=== PATIENT | female | born 1945 | race Caucasian/White ===

== ENCOUNTER 2019-09-08 21:33 | Observation (INO) ==
[2019-09-08] MEDS ORDERED: ASPIRIN CHEW 81 MG TABLET PO STA (22:21)
[2019-09-08] MEDS ORDERED: ALUM/MAG/SIMETH/LIDO VISC 1:1 30 ML BOTTLE PO STA (22:22)
[2019-09-08] MEDS ORDERED: ASPIRIN 325 MG TABLET ONE (22:26)
[2019-09-08 22:31] LABS: Basophils # 0.1 10*3/uL (0.0-0.2); Basophils % 0.6 % (0.0-0.8); Eosinophils # 0.6 10*3/uL (0.0-0.87); Eosinophils % 7.5 % (0.00-10.9); Immature Granulocytes % 0.4 %; Immature Granulocytes Absolute 0.03 #; Lymphocytes # 1.9 10*3/uL (1.4-4.0); Lymphocytes % 23.1 % (21.3-54.2); Mean Corpuscular HGB Conc 31.8 GM/DL (32-36); Mean Corpuscular Volume 87.8 FL (87-102); Mean Platelet Volume 10.3 FL (9.6-12.0); Monocytes % 9.4 % (1.7-12.7); Platelet Count 367 T/CUMM (130-400); Red Blood Count 5.01 MC/CUMM (3.8-5.5); Red Cell Distribution Width 13.8 % (9.3-17.3); White Blood Count 8.2 T/CUMM (4-12)
[2019-09-08 22:41] LABS: Albumin 4.1 G/DL (3.4-5.0); Bilirubin,Total 0.5 MG/DL (0.2-1.0); Calcium 9.2 MG/DL (8.5-10.1); Osmolality,Calculated 282.4 MOS/KG (273-304); Total Protein 8.9 G/DL (6.4-8.3)
[2019-09-08] MEDS ORDERED: ONDANSETRON 4 MG/2 ML VIAL IV PRN (23:56)
[2019-09-09 01:37] LABS: Apearance,Urine CLEAR (Clear); Bilirubin,Urine Negative (Negative); Blood, Urine Negative (Negative); Glucose,Urine (UA) Negative (Negative); Ketones,Urine Negative (Negative); Mucus,Urine Occasional /LPF (Occasional); Nitrite,Urine Negative (Negative); Protein,Urine Negative; RBC,Urine 1 /HPF (0-4); Urine Color Straw (Yellow); Urine Specific Gravity 1.004 (1.001-1.035); Urine Urobilinogen < 2.0 EU/DL (0.2-1.0); WBC,Urine <1 /HPF (0-6)
[2019-09-09] MEDS ORDERED: MORPHINE 4 MG/1 ML VIAL IV PRN (01:49)
[2019-09-09] MEDS: APIXABAN 5 MG TABLET PO SCH ×2 (02:20→09:37)
[2019-09-09] MEDS: DOCUSATE SODIUM 100 MG CAPSULE PO SCH ×2 (02:20→09:36)
[2019-09-09] MEDS ORDERED: LEVOTHYROXINE 125 MCG TABLET PO SCH (06:00)
[2019-09-09 07:46] LABS: Risk Ratio 3.82; VLDL CHOLESTEROL 24.2 MG/DL
[2019-09-09] MEDS ORDERED: MELOXICAM 7.5 MG TABLET PO SCH (08:00)
[2019-09-09] MEDS ORDERED: CHOLECALCIFEROL 1,000 UNIT TABLET PO SCH (09:00)
[2019-09-09] MEDS ORDERED: MAGNESIUM GLUCONATE 500 MG TABLET PO SCH (09:00)
[2019-09-09] MEDS ORDERED: ASPIRIN EC 325 MG TABLET PO SCH (09:00)
[2019-09-09] MEDS ORDERED: SELENIUM 200 MCG TABLET PO SCH (09:00)
[2019-09-09] MEDS ORDERED: SPIRONOLACTONE 50 MG TABLET PO SCH (09:00)
[2019-09-09] MEDS ORDERED: CLOPIDOGREL 75 MG TABLET PO SCH (09:00)
[2019-09-09] MEDS ORDERED: LOSARTAN 50 MG TABLET PO SCH (09:00)
[2019-09-09] MEDS ORDERED: PANTOPRAZOLE 40 MG TABLET PO SCH ×2 (09:00→21:00)
[2019-09-09] MEDS ORDERED: DEXTROSE 50% 25 GM/50 ML VIAL IV PRN (10:18)
[2019-09-09] MEDS ORDERED: GLUCAGON 1 MG VIAL IM PRN (10:18)
[2019-09-09 11:42] VITALS: BP 139/63
[2019-09-09] MEDS ORDERED: ATORVASTATIN 40 MG TABLET PO SCH (21:00)
== END 2019-09-09 13:00 | disposition home or self-care (01) ==
LOC: N.EDINP 21:33 → N.ED 21:33 → N.TELEN 09-09 00:46
PROVIDERS: ADMIT Internal Medicine; ATTEND Internal Medicine

== ENCOUNTER 2021-08-12 05:27 | Inpatient (IN) ==
[2021-08-12] MEDS ORDERED: VANCOMYCIN INJ 1,000 MG in SODIUM CHLORIDE 0.9% 250 ML IV ONE (06:00)
[2021-08-12] MEDS ORDERED: BUPIVACAINE SPINAL 0.75% 2 ML AMP SPINAL ONE (06:07)
[2021-08-12] MEDS ORDERED: fentaNYL 100 MCG/2 ML VIAL ONE ×2 (06:08→07:35)
[2021-08-12] MEDS ORDERED: MIDAZOLAM 2 MG/2 ML VIAL ONE (06:08)
[2021-08-12] MEDS ORDERED: KETAMINE 500 MG/10 ML VIAL ONE (06:08)
[2021-08-12] MEDS ORDERED: DEXAMETHASONE 4 MG/1 ML VIAL ONE ×2 (06:18→10:01)
[2021-08-12] MEDS ORDERED: ROPIVACAINE 0.5% 30 ML VIAL ONE ×2 (06:19→10:01)
[2021-08-12] MEDS ORDERED: LACTATED RINGERS 1,000 ML IV SCH (07:00)
[2021-08-12] MEDS ORDERED: ePHEDrine 50 MG/ML VIAL ONE (07:21)
[2021-08-12] MEDS ORDERED: TRANEXAMIC ACID 1,000 MG/10 ML VIAL ONE (07:47)
[2021-08-12] MEDS ORDERED: ACETAMINOPHEN INJ 1,000 MG/100 ML VIAL IV ONE (07:47)
[2021-08-12] MEDS ORDERED: SUCCINYLCHOLINE 200 MG/10 ML VIAL ONE (07:47)
[2021-08-12] MEDS ORDERED: SEVOFLURANE 1 UNIT/15 MINUTE INH ONE (07:47)
[2021-08-12] MEDS ORDERED: GLYCOPYRROLATE 0.4 MG/2 ML VIAL ONE (07:47)
[2021-08-12] MEDS ORDERED: propofoL 200 MG/20 ML VIAL IV ONE (07:47)
[2021-08-12] MEDS ORDERED: ONDANSETRON 4 MG/2 ML VIAL ONE (07:47)
[2021-08-12] MEDS ORDERED: LIDOCAINE 2% 5 ML VIAL ONE (07:47)
[2021-08-12] MEDS ORDERED: PHENYLEPHRINE 1 MG/10 ML SYRINGE IV ONE (07:48)
[2021-08-12] MEDS ORDERED: PHENYLEPHRINE 10 MG/1 ML VIAL IV ONE (07:51)
[2021-08-12] MEDS ORDERED: LACTATED RINGERS 1,000 ML IV ONE (08:05)
[2021-08-12] MEDS ORDERED: SODIUM CHLORIDE 0.9% 250 ML IV ONE (08:05)
[2021-08-12] MEDS ORDERED: BACITRACIN OINT 0.9 GM PACK TOP ONE (08:13)
[2021-08-12] MEDS ORDERED: MAGNESIUM HYDROXIDE SUSP 30 ML UDCUP PO PRN (08:25)
[2021-08-12] MEDS ORDERED: MORPHINE 2 MG/1 ML SYRINGE IV PRN (08:26)
[2021-08-12] MEDS ORDERED: ONDANSETRON 4 MG/2 ML VIAL IV PRN ×2 (08:26→08:57)
[2021-08-12] MEDS ORDERED: diphenhydrAMINE CAP 25 MG CAPSULE PO PRN (08:26)
[2021-08-12] MEDS ORDERED: flumazeniL 0.5 MG/5 ML VIAL IV ONE (08:38)
[2021-08-12] MEDS ORDERED: NALOXONE 0.4 MG/ML VIAL ONE (08:38)
[2021-08-12] MEDS ORDERED: MEPERIDINE 25 MG/1 ML VIAL IV PRN (08:57)
[2021-08-12] MEDS: KETOROLAC 15 MG/1 ML VIAL IV SCH ×4 (09:00→21:36)
[2021-08-12] MEDS: HYDROmorphone 2 MG/1 ML VIAL IV PRN ×4 (09:00→09:31)
[2021-08-12] MEDS ORDERED: KETOROLAC 30 MG/1 ML VIAL ONE (09:03)
[2021-08-12] MEDS ORDERED: DEXTROSE 50% 25 GM/50 ML SYRINGE IV PRN (09:32)
[2021-08-12] MEDS ORDERED: GLUCAGON 1 MG VIAL IM PRN (09:32)
[2021-08-12] MEDS ORDERED: LIDOCAINE 100 MG/5 ML SYRINGE ONE (10:01)
[2021-08-12] MEDS ORDERED: DEXTROSE 50% 25 GM/50 ML VIAL IV PRN (10:45)
[2021-08-12] MEDS: INSULIN LISPRO 100 UNIT/ML SUBCUT SCH ×3 (13:37→21:26)
[2021-08-12] MEDS: metFORMIN 500 MG TABLET PO SCH (16:09)
[2021-08-12] MEDS: PANTOPRAZOLE 40 MG TABLET PO SCH (16:09)
[2021-08-12] MEDS: POTASSIUM CHLORIDE INJ 20 MEQ in LACTATED RINGERS 1,000 ML IV SCH ×2 (18:10→21:25)
[2021-08-12] MEDS: ATORVASTATIN 40 MG TABLET PO SCH ×2 (21:10→21:13)
[2021-08-12] MEDS: APIXABAN 2.5 MG TABLET PO SCH (21:13)
[2021-08-12] MEDS: GABAPENTIN 300 MG CAPSULE PO SCH (21:13)
[2021-08-12] MEDS: DOCUSATE SODIUM 100 MG CAPSULE PO SCH (21:13)
[2021-08-13] MEDS: KETOROLAC 15 MG/1 ML VIAL IV SCH (04:55)
[2021-08-13] MEDS: LEVOTHYROXINE 125 MCG TABLET PO SCH (05:44)
[2021-08-13] MEDS: POTASSIUM CHLORIDE INJ 20 MEQ in LACTATED RINGERS 1,000 ML IV SCH (05:44)
[2021-08-13 06:13] LABS: Basophils % 0.1 % (0.0-0.8); Eosinophils % 0.1 % (0.00-10.9); Hematocrit 32.4 VOL% (35.7-47.0); Hemoglobin 10.2 GM/DL (12.0-16.0); Immature Granulocytes % 0.5 %; Immature Granulocytes Absolute 0.06 #; Lymphocytes % 7.9 % (21.3-54.2); Mean Corpuscular HGB Conc 31.5 GM/DL (32-36); Mean Corpuscular Volume 85.9 FL (87-102); Mean Platelet Volume 10.8 FL (9.6-12.0); Monocytes % 6.5 % (1.7-12.7); Neutrophils % 84.9 % (38.7-73.9); Platelet Count 302 T/CUMM (130-400); Red Blood Count 3.77 MC/CUMM (3.8-5.5); Red Cell Distribution Width 15.5 % (9.3-17.3); White Blood Count 13.1 T/CUMM (4-12)
[2021-08-13 06:24] LABS: Calcium 8.7 MG/DL (8.5-10.1); Osmolality,Calculated 277.8 MOS/KG (273-304); Potassium 4.9 MMOL/L (3.5-5.1)
[2021-08-13] MEDS: INSULIN LISPRO 100 UNIT/ML SUBCUT SCH ×4 (07:57→21:10)
[2021-08-13] MEDS ORDERED: SELENIUM 200 MCG TABLET PO SCH (09:00)
[2021-08-13] MEDS: CHOLECALCIFEROL 1,000 UNIT TABLET PO SCH (09:13)
[2021-08-13] MEDS: MAGNESIUM OXIDE 400 MG TABLET PO SCH (09:14)
[2021-08-13] MEDS: SPIRONOLACTONE 50 MG TABLET PO SCH (09:14)
[2021-08-13] MEDS: DOCUSATE SODIUM 100 MG CAPSULE PO SCH ×2 (09:14→21:08)
[2021-08-13] MEDS: POTASSIUM CHLORIDE 10 MEQ TABLET PO SCH (09:14)
[2021-08-13] MEDS: ASPIRIN EC 81 MG TABLET PO SCH (09:14)
[2021-08-13] MEDS: APIXABAN 2.5 MG TABLET PO SCH ×2 (09:14→21:08)
[2021-08-13] MEDS: FUROSEMIDE 20 MG TABLET PO SCH (09:14)
[2021-08-13] MEDS: LOSARTAN 50 MG TABLET PO SCH (09:15)
[2021-08-13] MEDS: ESCITALOPRAM 10 MG TABLET PO SCH (09:15)
[2021-08-13] MEDS: GABAPENTIN 300 MG CAPSULE PO SCH ×2 (09:15→21:08)
[2021-08-13] MEDS: PANTOPRAZOLE 40 MG TABLET PO SCH ×2 (09:15→16:57)
[2021-08-13] MEDS: metFORMIN 500 MG TABLET PO SCH ×2 (09:15→16:57)
[2021-08-13] MEDS: MORPHINE 2 MG/1 ML SYRINGE IV PRN (13:34)
[2021-08-13] MEDS: ATORVASTATIN 40 MG TABLET PO SCH (21:08)
[2021-08-14] MEDS: MORPHINE 2 MG/1 ML SYRINGE IV PRN (04:41)
[2021-08-14] MEDS: LEVOTHYROXINE 125 MCG TABLET PO SCH (05:32)
[2021-08-14 05:49] LABS: Basophils # 0.1 10*3/uL (0.0-0.2); Basophils % 0.6 % (0.0-0.8); Eosinophils # 0.8 10*3/uL (0.0-0.87); Eosinophils % 6.9 % (0.00-10.9); Hematocrit 39.7 VOL% (35.7-47.0); Hemoglobin 12.2 GM/DL (12.0-16.0); Immature Granulocytes % 0.5 %; Immature Granulocytes Absolute 0.05 #; Lymphocytes # 1.2 10*3/uL (1.4-4.0); Lymphocytes % 10.7 % (21.3-54.2); Mean Corpuscular HGB Conc 30.7 GM/DL (32-36); Mean Corpuscular Volume 86.9 FL (87-102); Mean Platelet Volume 10.7 FL (9.6-12.0); Monocytes % 7.8 % (1.7-12.7); Neutrophils % 73.5 % (38.7-73.9); Platelet Count 299 T/CUMM (130-400); Red Blood Count 4.57 MC/CUMM (3.8-5.5); Red Cell Distribution Width 16.2 % (9.3-17.3); White Blood Count 10.8 T/CUMM (4-12)
[2021-08-14] MEDS: INSULIN LISPRO 100 UNIT/ML SUBCUT SCH ×2 (07:00→11:16)
[2021-08-14] MEDS ORDERED: POLYETHYLENE GLYCOL POWDER 17 GM PACK PO PRN (08:13)
[2021-08-14] MEDS: CHOLECALCIFEROL 1,000 UNIT TABLET PO SCH (08:14)
[2021-08-14] MEDS: APIXABAN 2.5 MG TABLET PO SCH (08:14)
[2021-08-14] MEDS: PANTOPRAZOLE 40 MG TABLET PO SCH (08:14)
[2021-08-14] MEDS: MAGNESIUM OXIDE 400 MG TABLET PO SCH (08:14)
[2021-08-14] MEDS: GABAPENTIN 300 MG CAPSULE PO SCH (08:14)
[2021-08-14] MEDS: metFORMIN 500 MG TABLET PO SCH (08:14)
[2021-08-14] MEDS: FUROSEMIDE 20 MG TABLET PO SCH (08:14)
[2021-08-14] MEDS: ESCITALOPRAM 10 MG TABLET PO SCH (08:14)
[2021-08-14] MEDS: ASPIRIN EC 81 MG TABLET PO SCH (08:14)
[2021-08-14] MEDS: DOCUSATE SODIUM 100 MG CAPSULE PO SCH (08:14)
[2021-08-14] MEDS: POTASSIUM CHLORIDE 10 MEQ TABLET PO SCH (08:15)
[2021-08-14] MEDS: SPIRONOLACTONE 50 MG TABLET PO SCH (08:15)
[2021-08-14] MEDS: LOSARTAN 50 MG TABLET PO SCH (08:15)
[2021-08-14] MEDS ORDERED: SELENIUM 200MCG PO SCH (09:00)
[2021-08-14 11:22] VITALS: BP 106/48
== END 2021-08-14 13:02 | disposition swing bed (61) | DRG 470 ==
LOC: N.OR 05:27 → N.SDSINP 05:32 → N.3E 09:29
PROVIDERS: ADMIT Orthopaedic Surgery; ATTEND Orthopaedic Surgery

== ENCOUNTER 2022-02-12 12:29 | Observation (INO) ==
[2022-02-12] MEDS ORDERED: MORPHINE 2 MG/1 ML SYRINGE IV PRN (13:34)
[2022-02-12] MEDS ORDERED: MAGNESIUM SULF RIDER 2 GM/50 ML PREMIX IV PRN (13:34)
[2022-02-12] MEDS ORDERED: diphenhydrAMINE CAP 25 MG CAPSULE PO PRN (13:34)
[2022-02-12] MEDS ORDERED: ACETAMINOPHEN 325 MG TABLET PO PRN (13:34)
[2022-02-12] MEDS ORDERED: DOCUSATE SODIUM 100 MG CAPSULE PO PRN (13:34)
[2022-02-12] MEDS ORDERED: PROMETHAZINE 25 MG TABLET PO PRN (13:34)
[2022-02-12] MEDS ORDERED: ALUMINUM/MAGNES/SIMETH MAX STR 30 ML UDCUP PO PRN (13:34)
[2022-02-12] MEDS ORDERED: POTASSIUM CHLORIDE 20 MEQ TABLET PO PRN (13:34)
[2022-02-12] MEDS ORDERED: ZALEPLON 5 MG CAPSULE PO PRN (13:34)
[2022-02-12] MEDS ORDERED: hydrALAZINE 20 MG/1 ML VIAL IV PRN (13:34)
[2022-02-12] MEDS ORDERED: MAGNESIUM SULF RIDER 4 GM/100 ML PREMIX IV PRN (13:34)
[2022-02-12] MEDS ORDERED: guaiFENesin/DM ER 600-30 MG TABLET PO PRN (13:34)
[2022-02-12] MEDS ORDERED: ONDANSETRON 4 MG/2 ML VIAL IV PRN (13:34)
[2022-02-12 15:19] LABS: Basophils % 0.5 % (0.0-0.8); Eosinophils # 0.3 10*3/uL (0.0-0.87); Eosinophils % 5.4 % (0.00-10.9); Hematocrit 42.9 VOL% (35.7-47.0); Hemoglobin 12.9 GM/DL (12.0-16.0); Immature Granulocytes % 0.2 %; Immature Granulocytes Absolute 0.01 #; Lymphocytes # 1.4 10*3/uL (1.4-4.0); Lymphocytes % 22.1 % (21.3-54.2); Mean Corpuscular HGB Conc 30.1 GM/DL (32-36); Mean Corpuscular Volume 79.7 FL (87-102); Mean Platelet Volume 10.5 FL (9.6-12.0); Monocytes # 0.6 10*3/uL (0.11-0.8); Neutrophils % 62.8 % (38.7-73.9); Platelet Count 363 T/CUMM (130-400); Red Blood Count 5.38 MC/CUMM (3.8-5.5); Red Cell Distribution Width 21.2 % (9.3-17.3); White Blood Count 6.1 T/CUMM (4-12)
[2022-02-12 16:00] LABS: Albumin 3.6 G/DL (3.4-5.0); Bilirubin,Total 0.6 MG/DL (0.20-1.00); Calcium 9.6 MG/DL (8.5-10.1); Potassium 4.3 MMOL/L (3.5-5.1); Thyroid Stimulating Hormone 0.743 uIU/ml (0.358-3.74); Total Protein 8.5 G/DL (6.4-8.2)
[2022-02-13 05:38] LABS: Basophils % 0.4 % (0.0-0.8); Eosinophils # 0.4 10*3/uL (0.0-0.87); Eosinophils % 5.5 % (0.00-10.9); Hematocrit 43.3 VOL% (35.7-47.0); Hemoglobin 13.1 GM/DL (12.0-16.0); Immature Granulocytes % 0.1 %; Immature Granulocytes Absolute 0.01 #; Lymphocytes # 1.5 10*3/uL (1.4-4.0); Lymphocytes % 22.1 % (21.3-54.2); Mean Corpuscular HGB Conc 30.3 GM/DL (32-36); Mean Corpuscular Volume 77.5 FL (87-102); Mean Platelet Volume 10.8 FL (9.6-12.0); Monocytes # 0.6 10*3/uL (0.11-0.8); Monocytes % 8.4 % (1.7-12.7); Neutrophils % 63.5 % (38.7-73.9); Platelet Count 374 T/CUMM (130-400); Red Blood Count 5.59 MC/CUMM (3.8-5.5); Red Cell Distribution Width 21.3 % (9.3-17.3); White Blood Count 6.8 T/CUMM (4-12)
[2022-02-13 06:02] LABS: Calcium 10.1 MG/DL (8.5-10.1)
[2022-02-13] MEDS: PANTOPRAZOLE 40 MG TABLET PO SCH (08:08)
[2022-02-13] MEDS: ESCITALOPRAM 10 MG TABLET PO SCH (10:35)
[2022-02-13] MEDS: FERROUS SULFATE 325 MG TABLET PO SCH (10:35)
[2022-02-13] MEDS: GABAPENTIN 400 MG CAPSULE PO SCH ×2 (10:35→21:39)
[2022-02-13] MEDS: LEVOTHYROXINE 125 MCG TABLET PO SCH (10:35)
[2022-02-13] MEDS: LOSARTAN 50 MG TABLET PO SCH (10:35)
[2022-02-13] MEDS: DOCUSATE SODIUM 100 MG CAPSULE PO SCH ×2 (10:43→21:39)
[2022-02-13] MEDS ORDERED: DIAZEPAM 5 MG TABLET PO ONE (11:00)
[2022-02-13] MEDS ORDERED: diphenhydrAMINE CAP 25 MG CAPSULE PO ONE (11:00)
[2022-02-13] MEDS ORDERED: ceFAZolin 1,000 MG VIAL IRRIG ONE (11:00)
[2022-02-13] MEDS ORDERED: LIDOCAINE 1%/EPI INJ 20 ML VIAL ONE (11:10)
[2022-02-13] MEDS ORDERED: ceFAZolin 1,000 MG VIAL ONE (11:10)
[2022-02-13] MEDS ORDERED: methylPREDNISolone SOD SUC 125 MG/2 ML VIAL ONE (12:16)
[2022-02-13] MEDS ORDERED: HYDROmorphone 1 MG/1 ML SYRINGE ONE ×2 (12:18→12:40)
[2022-02-13] MEDS ORDERED: diphenhydrAMINE 50 MG/1 ML VIAL ONE (12:18)
[2022-02-13] MEDS ORDERED: MIDAZOLAM 2 MG/2 ML VIAL ONE (12:18)
[2022-02-13] MEDS ORDERED: HEPARIN 5,000 UNIT/1 ML VIAL ONE (12:46)
[2022-02-13] MEDS ORDERED: HEPARIN/NACL 0.9% 2 UNITS/ML 3,000 UNIT/1,500 ML BAG IV ONE (12:51)
[2022-02-14 05:52] LABS: Basophils % 0.3 % (0.0-0.8); Eosinophils % 0.1 % (0.00-10.9); Hematocrit 39.2 VOL% (35.7-47.0); Immature Granulocytes % 0.3 %; Immature Granulocytes Absolute 0.02 #; Lymphocytes # 0.9 10*3/uL (1.4-4.0); Lymphocytes % 12.2 % (21.3-54.2); Mean Corpuscular HGB Conc 30.6 GM/DL (32-36); Mean Corpuscular Volume 78.4 FL (87-102); Mean Platelet Volume 10.1 FL (9.6-12.0); Monocytes # 0.6 10*3/uL (0.11-0.8); Monocytes % 8.6 % (1.7-12.7); Neutrophils % 78.5 % (38.7-73.9); Platelet Count 355 T/CUMM (130-400); Red Cell Distribution Width 20.9 % (9.3-17.3)
[2022-02-14 06:07] LABS: Calcium 9.2 MG/DL (8.5-10.1); Osmolality,Calculated 281.7 MOS/KG (273-304); Potassium 4.2 MMOL/L (3.5-5.1)
[2022-02-14] MEDS: LEVOTHYROXINE 125 MCG TABLET PO SCH (06:37)
[2022-02-14] MEDS ORDERED: ROSUVASTATIN 20 MG TABLET PO SCH (09:00)
[2022-02-14] MEDS ORDERED: MAGNESIUM OXIDE 400 MG TABLET PO SCH (09:00)
[2022-02-14] MEDS ORDERED: ASPIRIN EC 81 MG TABLET PO SCH (09:00)
[2022-02-14] MEDS: DOCUSATE SODIUM 100 MG CAPSULE PO SCH (09:08)
[2022-02-14] MEDS: GABAPENTIN 400 MG CAPSULE PO SCH (09:09)
[2022-02-14] MEDS: ESCITALOPRAM 10 MG TABLET PO SCH (09:10)
[2022-02-14] MEDS: LOSARTAN 50 MG TABLET PO SCH (09:10)
[2022-02-14] MEDS: PANTOPRAZOLE 40 MG TABLET PO SCH (09:10)
[2022-02-14] MEDS: FERROUS SULFATE 325 MG TABLET PO SCH (09:28)
[2022-02-14 12:53] VITALS: BP 131/70
== END 2022-02-14 14:08 | disposition home or self-care (01) ==
LOC: INTOOBSV 14:13 → N.TELEN 14:13 → UNDODISOB 02-14 12:55
PROVIDERS: ADMIT Internal Medicine Cardiovascular Disease; ATTEND Internal Medicine Cardiovascular Disease
PROC: CLMICRA (2022-02-13 11:45)